=== PATIENT | female | born 1995 | race Caucasian/White ===

== ENCOUNTER 2017-02-01 11:56 | Outpatient (CLI) ==
[2016-02-12 19:52] VITALS: BMI 39.9
[2017-02-01 12:53] LABS: FLU INTERNAL QC INTERNAL QC VALID; RAPID FLU A NEGATIVE (NEGATIVE); RAPID FLU B NEGATIVE (NEGATIVE)
== END 2017-02-01 11:57 | disposition home or self-care (01) ==
LOC: LAB 11:56
PROVIDERS: ATTEND Nurse Practitioner Family
DX: J02.9 Acute pharyngitis, unspecified (principal); R50.9 Fever, unspecified
CPT/HCPCS: 87651; 87804; 87880

== ENCOUNTER 2018-01-23 18:38 | Emergency (ER) ==
[2018-01-23 18:41] VITALS: BP 116/75; TEMP 97.7; BMI 38.0
[2018-01-23] MEDS ORDERED: TORADOL IM STA (19:12)
[2018-01-23] MEDS ORDERED: NORFLEX IM STA (19:13)
--- NOTE | 2018-01-23 19:45 | ED.PDOC ---
General ED Provider: Dr. RAFY LEVINE Chief Complaint: Back Pain Stated Complaint: Patient is a 22 year old female who states that when she bent over to place her infant in a car her back went out. Started having severe pain on the lower back. Went home slept but the pain was worse when she woke up. Has not take any medications for it. Has never had any back pain or arthritis before. Time Seen by Physician: 19:41 Mode of Arrival: Walk-In Information Source: Patient [facility] Care [facility] T[facility] Documentation Reviewed and Agree: Yes Reviewed sepsis parameters & appropriate labs ordered?: No System Inflammatory Response Syndrome: Not Applicable Sepsis Protocol: For patient's 13 years and over: Temp is 96.8 and below OR 101 and greater Pulse >90 BPM Resp >20/minute Acutely Altered Mental Status Are patient's symptoms suggestive of a new infection, such as: -Pneumonia -Skin, Soft Tissue -Endocarditis -UTI -Bone, Joint Infection -Implantable Device -Acute Abdominal Infection -Wound Infection -Meningitis -Blood Stream Catheter Infection -Unknown System Inflammatory Response Syndrome: Not Applicable Musculoskeletal Complaint Exam - Back Pain Complaint/Exam Mechanism of Injury: Reports: No known trauma (only bending to place infant in a car seat. ) Onset/Duration: 7 hours Symptoms Are: Still present Timing: Constant Initial Severity: Moderate Current Severity: Severe Location: Reports: Radiating (Left leg) Character: Reports: Aching, Throbbing, Spasmodic Aggravating: Reports: Movements, Bending, Walking Alleviating: Reports: None Associated Signs and Symptoms: Denies: Swelling, Redness, Bruising, Fever, Weakness, Numbness, Tingling, Abdominal pain, Flank pain, Bladder incontinence, Bowel incontinence, Weight loss, Pain with weight bearing TAD Risk Factors: Reports: None AAA Risk Factors: Reports: None Cauda Equina Risk Factors: Denies: Saddle anesthesia, Perineal anesthesia, Bladder dysfuntion, Bowel dysfunction, Lower extremity numbness, Lower extremity weakness Epidural Abcess Risk Factors: Denies: Fever, IV drug use, Recent dental procedure, Skin abcess, Lower extremity numbness, Lower extremity weakness Related Surgical History: Reports: None Focal Tenderness: No Paraspinal Muscle Tenderness: Yes Paraspinal Muscle Spasm: Yes Scoliosis: No Lordosis: No Kyphosis: No SLR Test: Right Positive, Left Positive Hip Motion Testing Pain: Right Negative, Left Negative Focal Weakness: Present: None Focal Sensory Loss: Present: None Gait: Present: Abnormal (due to pain ) Back Picture: 1 - spasms Differential Diagnoses: Herniated Disk, Strain, Sprain Review of Systems - Review Of Systems Constitutional: Reports: No symptoms Eyes: Reports: No symptoms Ears, Nose, Mouth, Throat: Reports: No symptoms Respiratory: Reports: No symptoms Cardiac: Reports: No symptoms GI: Reports: No symptoms : Reports: No symptoms Musculoskeletal: Reports: Back pain, Muscle pain Skin: Reports: No symptoms Neurological: Reports: Anxiety Endocrine: Reports: No symptoms Hematologic/Lymphatic: Reports: No symptoms All Other Systems: Reviewed and Negative Past Medical History - Past Medical History Endocrine: Reports: None Cardiovascular: Reports: None Respiratory: Reports: None Hematological: Reports: None Gastrointestinal: Reports: Other (Gallbladder attack ) Genitourinary: Reports: None Neuro/Psych: Reports: None Musculoskeletal: Reports: Joint Pain (elbow ) Cancer: Reports: None Last Menstrual Period: 01/23/18 - Surgical History General Surgical History: Reports: - Family History Family History: Reports: None - Social History Smoking Status: Never smoker Hx Substance Use: No Alcohol Screening: None - Immunizations Tetanus Shot up to Date: No Physical Exam - Physical Exam Appearance: Ill-appearing, Obese Ill-appearing: Mild Pain Distress: Severe Eyes: Conjunctiva clear ENT: Nose normal Neck: Supple Respiratory: Airway patent, Breath sounds clear, Breath sounds equal, Respirations nonlabored Cardiovascular: RRR, Pulses normal, No rub, No murmur GI/: Soft, Nontender, No masses, Bowel sounds normal, No Organomegaly Musculoskeletal: No edema, No calf tenderness, Limited ROM Skin: Warm, Dry, Normal color Neurological: Sensation intact, Motor intact, Reflexes intact, Cranial nerves intact, Alert, Oriented Psychiatric: Anxious Interpretation - Radiology Interpretation Radiology Interpretation By: ED Physician Radiology Results: Negative Exam Interpreted: Other (LS spine x ray ) Critical Care Note - Critical Care Note Total Time (mins): 0 Course - Course Orders, Labs, Meds: Lab Review 01/23/18 01/23/18 19:34 19:34 Urine Color Dark Urine Clarity Cloudy Urine pH 5.5 Ur Specific Ivins >=1.030 Urine Protein 2+ Urine Glucose (UA) Negative Urine Ketones Trace Urine Blood 3+ Urine Nitrite Negative Urine Bilirubin 1+ Urine Urobilinogen 1.0 Ur Leukocyte Esterase Negative Urine Microscopic RBC Tntc Urine Microscopic WBC 2-5 Ur Squamous Epith Cells 2-5 Urine Bacteria Trace Urine Mucus 1+ Urine Test Negative Orders Category Date Time Status UA [URINALYSIS C & S IF INDICATED] Stat LAB 01/23/18 19:34 Completed URINE Stat LAB 01/23/18 19:34 Completed Hydromorphone HCl [Dilaudid 1 mg/ml Syringe] MEDS 01/23/18 20:57 Discontinued 1 mg IM ONCE STA Ketorolac Tromethamine [Toradol] MEDS 01/23/18 19:12 Discontinued 60 mg IM ONCE STA Orphenadrine Citrate [Norflex] MEDS 01/23/18 19:13 Discontinued 60 mg IM ONCE STA LUMBAR SPINE, MIN 4 VIEWS Stat RADS 01/23/18 19:13 Ordered Medications Discontinued Medications Generic Name Dose Route Start Last Admin Trade Name Freq PRN Reason Stop Dose Admin Hydromorphone HCl 1 mg 01/23/18 20:57 01/23/18 21:04 Dilaudid 1 Mg/Ml Syringe IM 01/23/18 20:58 1 mg ONCE STA Administration Ketorolac Tromethamine 60 mg 01/23/18 19:12 01/23/18 19:20 Toradol IM 01/23/18 19:13 60 mg ONCE STA Administration Orphenadrine Citrate 60 mg 01/23/18 19:13 01/23/18 19:20 Norflex IM 01/23/18 19:14 60 mg ONCE STA Administration Vital Signs: Temp Pulse Resp BP Pulse Ox 01/23/18 18:39 97.7 F 79 16 116/75 98 Departure - Departure Time of Disposition: 21:10 Disposition: HOME SELF-CARE Discharge Problem: Low back sprain Qualifiers: Encounter type: initial encounter Qualified Code(s): S33.9XXA - Sprain of unspecified parts of lumbar spine and pelvis, initial encounter Instructions: Low Back Strain (ED) Condition: Stable Pt referred to PMD for follow-up: Yes IPMP verified?: No Additional Instructions: Take Medications as prescribed Rest Follow up with PCP for MRI and physical therapy Prescriptions: Ibuprofen [Motrin] 600 mg PO Q6H PRN #30 tablet PRN Reason: Analgesia Tramadol HCl [Ultram] 50 mg PO Q6H PRN #25 tablet PRN Reason: Severe Pain Allergies/Adverse Reactions: Allergies No Known Allergies Allergy (Verified 01/23/18 18:41) Home Medications: Ambulatory Orders Ibuprofen [Motrin] 600 mg PO Q6H PRN #30 tablet 01/23/18 Tramadol HCl [Ultram] 50 mg PO Q6H PRN #25 tablet 01/23/18 Disposition Discussed With: Patient, Family
[2018-01-23] MEDS ORDERED: DILAUDID 1 MG/ML SYRINGE IM STA (20:57)
--- NOTE | 2018-01-24 07:31 | DI ---
EXAM: Lumbosacral spine five views HISTORY: Back pain COMPARISON: None. FINDINGS: There is mild dextroscoliosis. The vertebral bodies are anormal in height and alignment. Facet joints intact. Clips are seen in the right upper quadrant. IMPRESSION: Mild right-sided dextroscoliosis. No acute findings.
== END 2018-01-23 21:20 | disposition home or self-care (01) ==
LOC: ED 18:38
DX: S33.9XXA Sprain of unspecified parts of lumbar spine and pelvis, initial encounter (principal); X50.9XXA Other and unspecified overexertion or strenuous movements or postures, initial encounter
CPT/HCPCS: 81001; 81025; 96372; 99283

== ENCOUNTER 2018-04-04 20:18 | Emergency (ER) ==
[2018-04-04 20:27] VITALS: BP 119/71; TEMP 98.8; BMI 40.6
--- NOTE | 2018-04-04 20:44 | ED.PDOC ---
General ED Provider: Dr. RAFY LEVINE Chief Complaint: Back Pain Stated Complaint: patient states she started having severe mid lower back pain after lifting a baby similar to what happended few months. Time Seen by Physician: 20:42 Mode of Arrival: Walk-In Information Source: Patient Exam Limitations: No limitations [facility] Documentation Reviewed and Agree: Yes Reviewed sepsis parameters & appropriate labs ordered?: No System Inflammatory Response Syndrome: Not Applicable Sepsis Protocol: For patient's 13 years and over: Temp is 96.8 and below OR 101 and greater Pulse >90 BPM Resp >20/minute Acutely Altered Mental Status Are patient's symptoms suggestive of a new infection, such as: -Pneumonia -Skin, Soft Tissue -Endocarditis -UTI -Bone, Joint Infection -Implantable Device -Acute Abdominal Infection -Wound Infection -Meningitis -Blood Stream Catheter Infection -Unknown Musculoskeletal Complaint Exam - Back Pain Complaint/Exam Mechanism of Injury: Reports: No known trauma (just bending and lifting a small child. ) Onset/Duration: This evening Symptoms Are: Still present Timing: Constant Episodes Lasting: Hours Initial Severity: Severe Current Severity: Severe Location: Reports: Radiating (Right leg ) Character: Reports: Aching, Throbbing Associated Signs and Symptoms: Reports: Pain with weight bearing. Denies: Swelling, Redness, Bruising, Fever, Weakness, Numbness, Tingling, Abdominal pain , Flank pain, Bladder incontinence, Bowel incontinence, Weight loss Related History: Reports: Previous back injury (Epidural 4 months ago). Denies : Occupational injury TAD Risk Factors: Reports: None AAA Risk Factors: Reports: None Cauda Equina Risk Factors: Reports: None Epidural Abcess Risk Factors: Reports: None Related Surgical History: Reports: None Focal Tenderness: Yes Paraspinal Muscle Tenderness: No Paraspinal Muscle Spasm: No Scoliosis: No Lordosis: No Kyphosis: No SLR Test: Right Positive, Left Negative Hip Motion Testing Pain: Right Negative, Left Negative Focal Weakness: Present: None Focal Sensory Loss: Present: None Gait: Present: Normal Back Picture: 1 - tenderness to palpation Differential Diagnoses: Strain, Sprain Review of Systems - Review Of Systems Constitutional: Reports: No symptoms Eyes: Reports: No symptoms Ears, Nose, Mouth, Throat: Reports: No symptoms Respiratory: Reports: No symptoms Cardiac: Reports: No symptoms GI: Reports: No symptoms : Reports: No symptoms Musculoskeletal: Reports: Back pain Skin: Reports: No symptoms Neurological: Reports: No symptoms Endocrine: Reports: No symptoms Hematologic/Lymphatic: Reports: No symptoms All Other Systems: Reviewed and Negative Past Medical History - Past Medical History Endocrine: Reports: None Cardiovascular: Reports: None Respiratory: Reports: None Hematological: Reports: None Gastrointestinal: Reports: Other (Gallbladder attack ) Genitourinary: Reports: None Neuro/Psych: Reports: None Musculoskeletal: Reports: Joint Pain (elbow ) Cancer: Reports: None Last Menstrual Period: last week - Surgical History General Surgical History: Reports: - Family History Family History: Reports: None - Social History Smoking Status: Never smoker Hx Substance Use: No Alcohol Screening: None - Immunizations Tetanus Shot up to Date: Yes Physical Exam - Physical Exam Appearance: Ill-appearing, Obese Ill-appearing: Mild Pain Distress: Severe Neck: Supple Respiratory: Airway patent, Breath sounds clear, Breath sounds equal, Respirations nonlabored Cardiovascular: RRR, Pulses normal, No rub, No murmur GI/: Soft, Nontender, No masses, Bowel sounds normal, No Organomegaly Musculoskeletal: Limited ROM (of the back and right lower extremity ) Skin: Warm, Dry Neurological: Sensation intact, Motor intact, Alert, Oriented Psychiatric: Anxious Re-Evaluation - Re-Evaluation Time of Re-Evaluation: 20:45 Status: Improved Critical Care Note - Critical Care Note Total Time (mins): 0 Course - Course Orders, Labs, Meds: Orders Category Date Time Status Ketorolac Tromethamine [Toradol] MEDS 04/04/18 20:40 Discontinued 60 mg IM ONCE STA Medications Discontinued Medications Generic Name Dose Route Start Last Admin Trade Name Freq PRN Reason Stop Dose Admin Ketorolac Tromethamine 60 mg 04/04/18 20:40 04/04/18 20:47 Toradol IM 04/04/18 20:41 60 mg ONCE STA Administration Vital Signs: Temp Pulse Resp BP Pulse Ox 04/04/18 20:19 98.8 F 79 20 119/71 98 Departure - Departure Time of Disposition: 20:53 Disposition: HOME SELF-CARE Discharge Problem: Backache, Lumbar radiculopathy, acute Low back sprain Qualifiers: Encounter type: initial encounter Qualified Code(s): S33.9XXA - Sprain of unspecified parts of lumbar spine and pelvis, initial encounter Instructions: Lumbar Radiculopathy (ED), Lower Back Exercises (ED) Condition: Fair Pt referred to PMD for follow-up: Yes IPMP verified?: Yes Additional Instructions: Rest Follow up with PCP in 3 days Take Medications as prescribed. Prescriptions: Ibuprofen [Motrin] 600 mg PO Q6H PRN #30 tablet PRN Reason: Analgesia Allergies/Adverse Reactions: Allergies No Known Allergies Allergy (Verified 04/04/18 20:26) Home Medications: Ambulatory Orders Ibuprofen [Motrin] 600 mg PO Q6H PRN #30 tablet 04/04/18 Disposition Discussed With: Patient
[2018-04-04] MEDS: TORADOL IM STA (20:47)
== END 2018-04-04 22:03 | disposition home or self-care (01) ==
LOC: ED 20:18
DX: S33.9XXA Sprain of unspecified parts of lumbar spine and pelvis, initial encounter (principal); M54.16 Radiculopathy, lumbar region; X50.0XXA Overexertion from strenuous movement or load, initial encounter
CPT/HCPCS: 96372; 99282

== ENCOUNTER 2018-11-17 09:29 | Emergency (ER) ==
[2018-11-17 09:33] VITALS: BP 117/76; TEMP 98.3; BMI 40.7
[2018-11-17 10:20] LABS: URINE PREGNANCY TEST NEGATIVE (NEGATIVE)
--- NOTE | 2018-11-17 10:50 | US ---
EXAM: Pelvic ultrasound HISTORY: Right-sided pain COMPARISON: None TECHNIQUE: Transvaginal pelvic ultrasound was performed FINDINGS: Uterus measures 4.0 x 4.9 x 8.0 cm. Myometrial echogenicity is normal. Endometrium stephanie l in thickness measuring 0.7 cm. Intrauterine device in place. Right ovary measures 3.4 x 2.2 x 2.1 cm. Left ovary measures 3.4 x 2.1 x 1.9 cm. Ovaries normal in echogenicity and follicular pattern. Normal Doppler flow in right and left ovary. Trace free fluid in the cul-de-sac. IMPRESSION: 1. Intrauterine device in place. Otherwise unremarkable appearance of the uterus 2. Unremarkable appearance of the ovaries. 3. Trace free fluid in the cul-de-sac, nonspecific and may be physiologic.
--- NOTE | 2018-11-17 10:56 | CT ---
Exam: CT abdomen pelvis without intravenous contrast. Comparison: CT abdomen pelvis performed 02/12/2016. Reason for exam: Pain. FINDINGS: No pleural effusion, or focal consolidation in the partially imaged lung bases. The liver, spleen, adrenal glands, and pancreas appear grossly unremarkable within limitations of a n oncontrasted study. Image interpretation is limited by the lack of intravenous contrast administration. Tiny cortical calcification is seen in the right superior renal pole best seen on coronal image numbe r 64. No hydronephrosis or ureterolithiasis. No focal small bowel dilatation or transition point. The appendix is unremarkable. Inflammatory changes are seen in the descending colon adjacent to a diverticulum. Diverticular disea se is seen in the descending and rectosigmoid colon. Intrauterine device is seen within the endometrium. Hypodensities are seen adjacent to the uterus pr esumably adnexal/ovarian cysts. No intra-abdominal free air or pelvic free fluid. No suspicious appearing osteoblastic or osteolytic lesions. Impression: 1. Imaging findings are most consistent with diverticulitis as seen on axial image number 107 and co renetta image number 46. 2. Otherwise, suspicious appearing CT findings are seen.
--- NOTE | 2018-11-17 11:04 | ED.PDOC ---
General ED Provider: Dr. MAYELA WATT Chief Complaint: Abdominal Pain Stated Complaint: lower abdoninal pain Time Seen by Physician: 09:40 (seen with her nurse at all times ) Mode of Arrival: Walk-In Information Source: Patient Exam Limitations: No limitations Nursing and Triage Documentation Reviewed and Agree: Yes Does patient meet sepsis criteria?: No If yes, has appropriate treatment been initiated?: No System Inflammatory Response Syndrome: Not Applicable Sepsis Protocol: For patient's 13 years and over: Temp is 96.8 and below OR 101 and greater Pulse >90 BPM Resp >20/minute Acutely Altered Mental Status Are patient's symptoms suggestive of a new infection, such as: -Pneumonia -Skin, Soft Tissue -Endocarditis -UTI -Bone, Joint Infection -Implantable Device -Acute Abdominal Infection -Wound Infection -Meningitis -Blood Stream Catheter Infection -Unknown GI Complaint Exam - Abdominal Pain Complaint/Exam Onset: Gradual Duration: today Symptoms Are: Still present Timing: Intermittent Initial Severity: Mild Current Severity: Mild Location of Pain: Diffuse Character: Reports: Dull Aggravating: Reports: None Alleviating: Reports: None Associated Signs and Symptoms: Denies: Diaphoresis, Fever, Cough, Chest pain, Dizziness, Back pain, Constipation, Blood in stool, Dysuria, Urinary frequency, Decreased urine output, Decreased appetite, Vaginal bleeding, Vaginal discharge , Nausea, Vomiting, Diarrhea, Sore throat, Decreased activity Related History: Reports: Similar episode AAA Risk Factors: Reports: None Cardiac Risk Factors: Reports: None Ectopic Risk Factors: Reports: None Ovarian Torsion Risk Factors: Reports: None Surgical Obstruction Risk Factors: Reports: None Related Surgical History: Reports: None Patient Rh Status: Unknown Abdominal Findings: Present: None Review of Systems - Review Of Systems Constitutional: Reports: No symptoms Eyes: Reports: No symptoms Ears, Nose, Mouth, Throat: Reports: No symptoms Respiratory: Reports: No symptoms Cardiac: Reports: No symptoms GI: Reports: Abdominal pain : Reports: No symptoms Musculoskeletal: Reports: No symptoms Skin: Reports: No symptoms Neurological: Reports: No symptoms Endocrine: Reports: No symptoms Hematologic/Lymphatic: Reports: No symptoms All Other Systems: Reviewed and Negative Past Medical History - Past Medical History Previously Healthy: Yes Endocrine: Reports: None Cardiovascular: Reports: None Respiratory: Reports: None Hematological: Reports: None Gastrointestinal: Reports: Other (Gallbladder attack ) Genitourinary: Reports: None Neuro/Psych: Reports: None Musculoskeletal: Reports: Joint Pain (elbow ) Cancer: Reports: None Last Menstrual Period: MERANA--NO PERIODS. - Surgical History General Surgical History: Reports: - Family History Family History: Reports: None - Social History Smoking Status: Never smoker Hx Substance Use: No Alcohol Screening: None Physical Exam - Physical Exam Appearance: Well-appearing, No pain distress, Well-nourished Eyes: TRE, EOMI, Conjunctiva clear ENT: Ears normal, Nose normal, Oropharynx normal Respiratory: Airway patent, Breath sounds clear, Breath sounds equal, Respirations nonlabored Cardiovascular: RRR, Pulses normal, No rub, No murmur GI/: Soft, Nontender, No masses, Bowel sounds normal, No Organomegaly Musculoskeletal: Normal strength, ROM intact, No edema, No calf tenderness Skin: Warm, Dry, Normal color Neurological: Sensation intact, Motor intact, Reflexes intact, Cranial nerves intact, Alert, Oriented Psychiatric: Affect appropriate, Mood appropriate Interpretation - Radiology Interpretation Radiology Interpretation By: Radiologist Radiology Results: No acute changes Exam Interpreted: CT Scan Critical Care Note - Critical Care Note Total Time (mins): 0 Course - Course Hematology/Chemistry: 11/17/18 09:52 11/17/18 09:52 Orders, Labs, Meds: Lab Review 11/17/18 11/17/18 11/17/18 09:52 09:52 10:09 WBC 6.64 RBC 4.44 Hgb 12.9 Hct 37.4 MCV 84.2 MCH 29.1 MCHC 34.5 RDW Coeff of Prakash 12.6 Plt Count 228 Immature Gran % (Auto) 0.3 Neut % (Auto) 63.4 Lymph % (Auto) 28.6 Coos % (Auto) 5.4 Eos % (Auto) 2.1 Baso % (Auto) 0.2 Immature Gran # (Auto) 0.0 Neut # (Auto) 4.2 Lymph # (Auto) 1.9 Coos # (Auto) 0.4 Eos # (Auto) 0.1 Baso # (Auto) 0.0 Sodium 140.0 Potassium 4.08 Chloride 101.8 Carbon Dioxide 29.9 Anion Gap 12.38 BUN 14.7 Creatinine 0.81 Estimated GFR (MDRD) 88.00 BUN/Creatinine Ratio 18.14 Glucose 86.1 Calcium 9.43 Total Bilirubin 0.50 AST 27.3 ALT 23.0 Alkaline Phosphatase 53.6 Total Protein 7.38 Albumin 4.34 Globulin 3.04 Albumin/Globulin Ratio 1.42 Amylase 63.6 Lipase 79.3 Urine Color Yellow Urine Clarity Clear Urine pH 7.0 Ur Specific Neal 1.020 Urine Protein Negative Urine Glucose (UA) Negative Urine Ketones Negative Urine Blood 3+ Urine Nitrite Negative Urine Bilirubin Negative Urine Urobilinogen 0.2 Ur Leukocyte Esterase 2+ Urine Microscopic RBC 20-30 Urine Microscopic WBC 5-10 Ur Squamous Epith Cells 10-20 Urine Bacteria 1+ Urine Test 11/17/18 10:09 WBC RBC Hgb Hct MCV MCH MCHC RDW Coeff of Prakash Plt Count Immature Gran % (Auto) Neut % (Auto) Lymph % (Auto) Coos % (Auto) Eos % (Auto) Baso % (Auto) Immature Gran # (Auto) Neut # (Auto) Lymph # (Auto) Coos # (Auto) Eos # (Auto) Baso # (Auto) Sodium Potassium Chloride Carbon Dioxide Anion Gap BUN Creatinine Estimated GFR (MDRD) BUN/Creatinine Ratio Glucose Calcium Total Bilirubin AST ALT Alkaline Phosphatase Total Protein Albumin Globulin Albumin/Globulin Ratio Amylase Lipase Urine Color Urine Clarity Urine pH Ur Specific Neal Urine Protein Urine Glucose (UA) Urine Ketones Urine Blood Urine Nitrite Urine Bilirubin Urine Urobilinogen Ur Leukocyte Esterase Urine Microscopic RBC Urine Microscopic WBC Ur Squamous Epith Cells Urine Bacteria Urine Test Negative Orders Category Date Time Status AMYLASE Stat LAB 11/17/18 09:45 Ordered CBC W/ AUTO DIFF Stat LAB 11/17/18 09:45 Ordered COMPREHENSIVE METABOLIC PANEL Stat LAB 11/17/18 09:45 Ordered LIPASE Stat LAB 11/17/18 09:45 Ordered URINALYSIS C & S IF INDICATED Stat LAB 11/17/18 09:45 Uncollected URINE CULTURE Stat LAB 11/17/18 10:09 Received URINE Stat LAB 11/17/18 09:[address] ABDOMEN/PELVIS WO CONTRAST Stat RADS 11/17/18 09:46 Ordered U/S PELVIS GARCIA VAGINAL/NON OB Stat RADS 11/17/18 09:46 Ordered Vital Signs: Temp Pulse Resp BP Pulse Ox 11/17/18 09:30 98.3 F 82 16 117/76 97 Departure - Departure Time of Disposition: 11:03 Disposition: HOME SELF-CARE Discharge Problem: Abdominal pain Instructions: Abdominal Pain (ED) Condition: Good Pt referred to PMD for follow-up: Yes IPMP verified?: No Additional Instructions: Please call your Family Physician as soon as possible to schedule a follow-up appointment. Allergies/Adverse Reactions: Allergies No Known Allergies Allergy (Verified 11/17/18 09:33) Home Medications: Ambulatory Orders 1 [No Reported Medications] 11/17/18
== END 2018-11-17 12:05 | disposition left against medical advice (07) ==
LOC: ED 09:29
DX: N39.0 Urinary tract infection, site not specified (principal); R10.9 Unspecified abdominal pain
CPT/HCPCS: 36415; 80053; 81001; 81025; 82150; 83690; 85025; 87086; 99284

== ENCOUNTER 2018-12-05 09:58 | Emergency (ER) ==
[2018-12-05 09:58] VITALS: BMI 40.7
[2018-12-05 10:03] VITALS: BP 123/80; TEMP 98.3
[2018-12-05] MEDS ORDERED: TORADOL IM STA (10:13)
[2018-12-05 10:21] LABS: URINE PREGNANCY TEST NEGATIVE (NEGATIVE)
--- NOTE | 2018-12-05 10:56 | DI ---
EXAM: Five views of the lumbar spine. History: Lower back trauma. Comparison: Lumbar spine radiograph 01/23/2018 Findings: No acute fracture or subluxation of the lumbar spine. Disc space heights are preserved. Cholecystectomy clips. Intrauterine device is seen in the pelvis. Moderate stool seen within the ri ght side of the colon. Stable mild focal rightward curvature of the lumbar spine. Impression: No acute osseous abnormality of the lumbar spine
--- NOTE | 2018-12-05 10:57 | ED.PDOC ---
General ED Provider: Dr. MAYELA WATT Chief Complaint: Back Pain Stated Complaint: back pain lumbar ONLY Time Seen by Physician: 10:00 (SEEN WITH PT'S NURSE AT ALL TIME) Mode of Arrival: Walk-In Information Source: Patient Exam Limitations: No limitations Primary Care Provider: [facility] Nursing and Triage Documentation Reviewed and Agree: Yes Does patient meet sepsis criteria?: No If yes, has appropriate treatment been initiated?: No System Inflammatory Response Syndrome: Not Applicable Sepsis Protocol: For patient's 13 years and over: Temp is 96.8 and below OR 101 and greater Pulse >90 BPM Resp >20/minute Acutely Altered Mental Status Are patient's symptoms suggestive of a new infection, such as: -Pneumonia -Skin, Soft Tissue -Endocarditis -UTI -Bone, Joint Infection -Implantable Device -Acute Abdominal Infection -Wound Infection -Meningitis -Blood Stream Catheter Infection -Unknown Musculoskeletal Complaint Exam - Back Pain Complaint/Exam Mechanism of Injury: Reports: Trauma (FALL OVER A TODAY) Onset/Duration: TODAY AM Symptoms Are: Still present Timing: Constant Episodes Lasting: Minutes Initial Severity: Mild Current Severity: Mild Location: Reports: Discrete (L SPINE ONLY) Character: Reports: Aching Aggravating: Reports: Movements Alleviating: Reports: Rest Associated Signs and Symptoms: Denies: Swelling, Redness, Bruising, Fever, Weakness, Numbness, Tingling, Abdominal pain, Flank pain, Bladder incontinence, Bowel incontinence, Weight loss, Pain with weight bearing TAD Risk Factors: Reports: None AAA Risk Factors: Reports: None Cauda Equina Risk Factors: Reports: None Epidural Abcess Risk Factors: Reports: None Related Surgical History: Reports: None Focal Tenderness: No Paraspinal Muscle Tenderness: No Paraspinal Muscle Spasm: No Scoliosis: No Lordosis: No Kyphosis: No SLR Test: Right Negative, Left Negative Hip Motion Testing Pain: Right Negative, Left Negative Focal Weakness: Present: None Focal Sensory Loss: Present: None Gait: Present: Normal Differential Diagnoses: Fracture, Strain, Sprain Review of Systems - Review Of Systems Constitutional: Reports: No symptoms Eyes: Reports: No symptoms Ears, Nose, Mouth, Throat: Reports: No symptoms Respiratory: Reports: No symptoms Cardiac: Reports: No symptoms GI: Reports: No symptoms : Reports: No symptoms Musculoskeletal: Reports: Back pain Skin: Reports: No symptoms Neurological: Reports: No symptoms Endocrine: Reports: No symptoms Hematologic/Lymphatic: Reports: No symptoms All Other Systems: Reviewed and Negative Past Medical History - Past Medical History Previously Healthy: Yes Endocrine: Reports: None Cardiovascular: Reports: None Respiratory: Reports: None Hematological: Reports: None Gastrointestinal: Reports: Other (Gallbladder attack ) Genitourinary: Reports: None Neuro/Psych: Reports: None Musculoskeletal: Reports: Joint Pain (elbow ) Cancer: Reports: None Last Menstrual Period: 1 year ago - Surgical History General Surgical History: Reports: - Family History Family History: Reports: None - Social History Smoking Status: Never smoker Hx Substance Use: No Alcohol Screening: None - Immunizations Tetanus Shot up to Date: Yes Physical Exam - Physical Exam Appearance: Well-appearing, No pain distress, Well-nourished Eyes: TRE, EOMI, Conjunctiva clear ENT: Ears normal, Nose normal, Oropharynx normal Respiratory: Airway patent, Breath sounds clear, Breath sounds equal, Respirations nonlabored Cardiovascular: RRR, Pulses normal, No rub, No murmur GI/: Soft, Nontender, No masses, Bowel sounds normal, No Organomegaly Musculoskeletal: Normal strength, ROM intact, No edema, No calf tenderness Skin: Warm, Dry, Normal color Neurological: Sensation intact, Motor intact, Reflexes intact, Cranial nerves intact, Alert, Oriented Psychiatric: Affect appropriate, Mood appropriate Critical Care Note - Critical Care Note Total Time (mins): 0 Course - Course Orders, Labs, Meds: Lab Review 12/05/18 10:15 Urine Test Negative Orders Category Date Time Status URINE Stat LAB 12/05/18 10:15 COMP Ketorolac Tromethamine [Toradol] MEDS 12/05/18 10:13 Discontinued 60 mg IM ONCE STA LUMBAR SPINE, MIN 4 VIEWS Stat RADS 12/05/18 10:13 Taken Medications Discontinued Medications Generic Name Dose Route Start Last Admin Trade Name Freq PRN Reason Stop Dose Admin Ketorolac Tromethamine 60 mg 12/05/18 10:13 12/05/18 10:22 Toradol IM 12/05/18 10:14 60 mg ONCE STA Administration Vital Signs: Temp Pulse Resp BP Pulse Ox 12/05/18 09:59 98.3 F 70 18 123/80 97 Departure - Departure Time of Disposition: 11:30 Disposition: HOME SELF-CARE Discharge Problem: Sprain of lumbar spine Qualifiers: Encounter type: initial encounter Qualified Code(s): S33.5XXA - Sprain of ligaments of lumbar spine, initial encounter Instructions: Lower Back Exercises (ED), Low Back Strain (ED) Condition: Good Pt referred to PMD for follow-up: Yes IPMP verified?: No Additional Instructions: Please call your Family Physician as soon as possible to schedule a follow-up appointment. Allergies/Adverse Reactions: Allergies No Known Allergies Allergy (Verified 11/17/18 09:33) Home Medications: Ambulatory Orders 1 [No Reported Medications] 12/05/18
== END 2018-12-05 11:03 | disposition home or self-care (01) ==
LOC: ED 09:58
DX: M54.9 Dorsalgia, unspecified (principal); S33.5XXA Sprain of ligaments of lumbar spine, initial encounter; W19.XXXA Unspecified fall, initial encounter
CPT/HCPCS: 81025; 96372; 99282

== ENCOUNTER 2018-12-17 09:51 | Outpatient (CLI) | END 2018-12-17 09:52 | disposition home or self-care (01) | LOC: RHC-LAB 09:51 → FCC-LAB 09:52 | PROVIDERS: ATTEND Family Medicine | DX: R30.0 Dysuria (principal) | CPT/HCPCS: 87086 ==